=== PATIENT | female | born 1950 | race African-American/Black ===

== ENCOUNTER 2018-06-29 11:27 | Emergency (ER) | payer OTHER ==
[~2018-06-29] VITALS: Ht 160 cm; Wt 69.4 kg
--- NOTE | ~2018-06-29 | EKG ---
[address] [address] ELECTROCARDIOGRAM REPORT Name: HANNAH MONGE Room #: [id number] Admission: 06/29/18 Attend Phys: Discharge: 06/29/18 Date of : 52 Report #: [id number] THIS REPORT FOR: //name// [facility] ED Test Date: 2018-06-29 Test Time: 12:18:39 Pat Name: HANNAH MONGE Department: Room: Gender: F Building Equipment Operator: KFRIEDT : 1950 Requested By: Andrew Moya Order Number: [id number] MD: Gonzales Valladares Measurements Intervals [place] Rate: 80 P: -23 MI: 158 QRS: -2 QRSD: 97 T: 16 QT: 415 QTc: 479 Interpretive Statements Sinus rhythm Compared to ECG 01/05/2014 17:05:34 Sinus tachycardia no longer present Electronically Signed On 06-29-2018 20:14:15 [employer] ATTEND[employer] by Gonzales Valladares [email or web address] <ELECTRONICALLY SIGNED> By: Gonzales Valladares MD 06/29/182013 1218 17 Gonzales Valladares MD /[email or web address]
[~2018-06-29 11:27] MED LIST: ADULT LOW DOSE81 MG PO; CALCITONIN SALMON NASAL; CALCIUM PO; CYCLOBENZAPRINE10 MG PO; EVISTA PO; HYDROCODON-ACE1 EAC7 PO; MOBIC15 MG PO; MULTIVITAMINS; TRAMADOL 50 MG50 MG PO; VITAMIN D31000 UNI2 PO; ZOFRAN ODT4 MG PO
[2018-06-29 11:54] LABS: ABSOLUTE NEUTROPHILS 5.1 thou/uL (1.4-8.2); BASOPHILS 0.8 % (0.0-2.0); EOSINOPHILS 0.8 % (0.0-3.0); HEMATOCRIT 37.6 % (37.0-47.0); HEMOGLOBIN 12.5 gm/dL (12.0-15.0); LYMPHOCYTES 20.3 % (24.0-44.0); MCH 29.2 pg (26.0-34.0); MCHC 33.3 g/dL (28.0-37.0); MCV 87.6 fL (80.0-100.0); MONOCYTES 9.8 % (1.0-8.0); PLATELET COUNT 174 thou/uL (150-400); POLYS 68.3 % (36.0-66.0); RBC 4.29 mil/uL (4.20-5.00); RDW 14.1 % (10.5-14.5); WBC 7.5 thou/uL (4.0-11.0)
[2018-06-29 12:00] LABS: CALCIUM 8.9 mg/dL (8.5-10.1); CREATININE 0.9 mg/dL (0.6-1.0)
[2018-06-29 12:02] LABS: POTASSIUM 2.9 mmol/L (3.5-5.1)
[2018-06-29 12:06] LABS: ALBUMIN 3.4 g/dL (3.4-5.0); TOTAL BILIRUBIN 0.5 mg/dL (<0.1-1.0); TOTAL PROTEIN 7.3 g/dL (6.4-8.2)
[2018-06-29] MEDS ORDERED: RALOXIFENE HCL60 MG PO (12:41)
[2018-06-29 13:25] LABS: URINE BILIRUBIN NEGATIVE (Negative); URINE BLOOD NEGATIVE (Negative); URINE CLARITY CLEAR; URINE COLOR YELLOW; URINE GLUCOSE-RANDOM* NEGATIVE (Negative); URINE KETONES 1+ (Negative); URINE NITRITE-REFLEX NEGATIVE (Negative); URINE PROTEIN (DIPSTICK) NEGATIVE (Negative); URINE SPECIFIC GRAVITY 1.015 (1.005-1.035); URINE UROBILINOGEN 0.2 E.U./dl (0.2-1.0)
[2018-06-29 13:26] LABS: URINE LEUKOCYTES-REFLEX TRACE (Negative)
[2018-06-29 14:20] LABS: BACTERIA 1-9 Few /HPF (None Seen); SQUAMOUS 0-3 Few /LPF (0-3); URINE RBC 0-2 Rare /HPF (0-2); URINE WBC 0-5 Rare /HPF (0-5)
[2018-06-29 14:21] LABS: CASTS None Seen /LPF (None Seen); CRYSTALS None Seen /LPF (None Seen)
[2018-06-29] MEDS ORDERED: ONDANSETRON HCL4 M2 PO (16:12)
[2018-06-29] MEDS ORDERED: BACTRIM DS TAB1 EACH PO (16:12)
[2018-06-29] MEDS ORDERED: NORCO 5-325 TA1 EACH PO (16:12)
[2018-06-29 17:21] VITALS: BP 112/67
== END 2018-06-29 17:23 | disposition home or self-care (01) ==
LOC: ER 11:27
PROVIDERS: Physician Assistant
DX: N39.0 Urinary tract infection, site not specified (principal); E87.6 Hypokalemia; R11.2 Nausea with vomiting, unspecified; Z90.89 Acquired absence of other organs; Z86.718 Personal history of other venous thrombosis and embolism

== ENCOUNTER → 2018-11-16 | Outpatient (CLI) | payer OTHER ==
[~2018-11-16] MED LIST changes: +BACTRIM DS TAB1 EACH PO; +NORCO 5-325 TA1 EACH PO; +ONDANSETRON HCL4 M2 PO; +RALOXIFENE HCL60 MG PO
== END ==
LOC: RAD 09:16
DX: M25.551 Pain in right hip (principal)

== ENCOUNTER → 2021-05-10 | Outpatient (CLI) | payer OTHER ==
[2021-05-10 11:24] LABS: CALCIUM 8.6 mg/dL (8.5-10.1); CREATININE 0.8 mg/dL (0.6-1.0)
== END ==
LOC: CAT 10:27
PROVIDERS: ATTEND Nurse Practitioner
DX: N20.0 Calculus of kidney (principal); K57.30 Diverticulosis of large intestine without perforation or abscess without bleeding; K52.9 Noninfective gastroenteritis and colitis, unspecified; N30.01 Acute cystitis with hematuria